=== PATIENT | male | born 1955 | race Hispanic/Latino ===

== ENCOUNTER 2019-09-05 08:54 | Day surgery (SDC) | payer OTHER ==
[2019-08-30 10:31] LABS: Protime INR 1.01
--- NOTE | 2019-08-30 10:31 | RAD REPORT ---
EXAM DESCRIPTION: RAD - Chest Pa And Lat (2 Views) - 08/30/2019 10:12 am CLINICAL HISTORY: preop, hernia surgery pending COMPARISON: September 2017 TECHNIQUE: PA and lateral views of the chest were obtained. FINDINGS: The lungs are clear. Heart size is normal and central vasculature is within normal limit s. No pleural effusion or pneumothorax seen. No acute bony finding noted. No aortic abnormality. Lung markings are similar to comparison. IMPRESSION: No acute cardiopulmonary process. No significant interval change.
[2019-08-30 11:22] LABS: COL/ADP 84 SECONDS (56-102)
[2019-08-30 11:34] LABS: COL/EPI 86 SECONDS (80-184)
--- NOTE | 2019-08-30 12:46 | EKG ---
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
[~2019-09-05 08:54] MED LIST: CIPROFLOXACIN 400mg IV 400 MG/200 ML BAG IV ONE
[2019-09-05] MEDS ORDERED: Ringers Lactate 1,000 ML IV ONE ×2 (09:12→13:05)
[2019-09-05] MEDS ORDERED: CEFAZOLIN/SWI 1gm 1 GM/10 ML SYR ONE (09:12)
[2019-09-05] MEDS ORDERED: dexAMETHasone 10 MG/ML VIAL ONE (09:33)
[2019-09-05] MEDS ORDERED: MIDAZOLAM HCL 2 MG/2 ML INJ ONE (09:33)
[2019-09-05] MEDS ORDERED: LIDOCAINE 2% MPF 5 ML VIAL ONE (09:33)
[2019-09-05] MEDS ORDERED: PROPOFOL 200 MG/20 ML VIAL IV ONE (09:33)
[2019-09-05] MEDS ORDERED: FENTANYL CITR 100 MCG/2 ML ONE (09:33)
[2019-09-05] MEDS ORDERED: ROCURONIUM 50 MG/5 ML VIAL IV ONE (09:35)
[2019-09-05] MEDS ORDERED: GLYCOPYRROLATE 0.2 MG/ML SYR ONE ×2 (10:49→10:51)
[2019-09-05] MEDS ORDERED: Mastisol Adhesive Liq ONE (11:06)
[2019-09-05] MEDS ORDERED: KETOROLAC 30 MG/ML INJ ONE (11:25)
[2019-09-05] MEDS: HYDROMORPHONE HCL 1 MG/ML INJ ONE ×2 (12:16→12:21)
[2019-09-05] MEDS ORDERED: ONDANSETRON 4 MG/2 ML VIAL ONE (12:25)
[2019-09-05] MEDS: HYDROMORPHONE HCL 2 MG/ML inj ONE ×3 (12:26→12:41)
[2019-09-05] MEDS ORDERED: HYDROCODONE/APAP 7.5/325 MG TAB ONE (13:05)
[2019-09-05 13:37] VITALS: TEMP 97.5
[2019-09-05 14:49] VITALS: BP 124/71; O2SAT 99
--- NOTE | 2019-09-05 22:49 | OP ---
Date of Procedure: 09/05/2019 Surgeon: Maynor Hobson MD Substation Technician: EUGENIE Heath. Preoperative Diagnosis: Bilateral inguinal hernia. Postoperative Diagnosis: Bilateral inguinal hernia. Procedure Performed: Repair of bilateral inguinal hernia. Estimated Blood Loss: Minimal. Specimen: Cord lipoma on the right side. Findings: Bilateral direct inguinal hernia with a cord lipoma on the right side. Anesthesia: General. Complications: None. Disposition: The patient tolerated the procedure in stable condition, taken to Recovery in good gene ral condition Procedure In Detail: Patient was brought to the OR and placed in supine position. General anesthesi a was begun. Patient was prepped and draped in the usual sterile fashion. Marcaine 0.5% was infiltr ated locally in a field block fashion. A 15-blade was used to make a 4 cm oblique incision between t he left pubic tubercle and anterior iliac superior spine. Subcutaneous tissue was divided. The Scar pa fascia identified and divided. Aponeurosis was identified, mobilized inferiorly to expose shelvin g edge. Then aponeurosis opened through the external ring and ilioinguinal nerve identified and retr acted out of the field of dissection. Cord skeletonized and mobilized at the pubic tubercle. A larg e direct inguinal hernia was present, which was reduced back in the peritoneal cavity and then the fl oor was recreated by using 2-0 Prolene starting at the pubic tubercle to create a new internal ring b y joining the conjoined tendon to the shelving edge. Then Marlex mesh plug was placed in the new int ernal ring secured with VersaTack stapler. Onlay mesh placed on the inguinal floor, secured medially to the pubic tubercle, and superior to the conjoined tendon inferiorly to the shelving edge lateral to each other, then cord structures and inguinal nerve placed back in anatomical location and 2-0 Pro zaida used to close the aponeurosis, 3-0 chromic used to close the Mady fascia, and 3-0 chromic used to close the skin. Sterile dressing was applied. Exact same operation occurred on the right side. The only difference was a small cord lipoma, which was excised, sent to Pathology as specimen. Othe rwise all the findings and repair were the same. Then, sterile dressing was applied. The patient wa s awakened and taken to the Recovery in good general condition. Discharge Note: The patient will go to Day-Surgery, then home when stable. Disposition: Home. Condition: Stable. Discharge Instructions: Resume home medications and diet. Activity as tolerated. No heavy lifting. Remove outer dressing in 2 days. Shower. Keep wound clean and dry. Keep Steri-Strips on at all t imes. Follow up in my office in 1 week. Call for appointment. Tylenol No. 3 one tablet p.o. q.4 p. r.n. pain. Ice pack and scrotal support as ordered. MARA/MIAHL Voice ID: [id number] Report ID: [id number]
== END 2019-09-05 14:45 | disposition home or self-care (01) ==
LOC: OR 08:54
PROVIDERS: ATTEND Surgery
PROC: 0YUA0JZ Supplement Bilateral Inguinal Region with Synthetic Substitute, Open Approach (ICD-10-PCS; principal; 2019-09-05 10:00)
DX: K40.20 Bilateral inguinal hernia, without obstruction or gangrene, not specified as recurrent (principal); I10 Essential (primary) hypertension
CPT/HCPCS: 93005; 36415; 85610; 88302; 85576 ×2; 71046; 49505; J2704; J2250; J1170 ×2; J3010; J1100; J0690; J7120 ×2; J2405; J0744